=== PATIENT | female | born 1975 | race Caucasian/White ===

== ENCOUNTER → 2017-09-25 | Outpatient (CLI) | payer BC | END | disposition home or self-care (01) | LOC: C.LAB1850 08:22 | PROVIDERS: ATTEND Obstetrics & Gynecology Reproductive Endocrinology | DX: N97.9 Female infertility, unspecified (principal) ==

== ENCOUNTER → 2017-09-27 | Outpatient (CLI) | payer BC | END | disposition home or self-care (01) | LOC: C.LAB1850 08:18 | PROVIDERS: ATTEND Obstetrics & Gynecology Reproductive Endocrinology | DX: N97.9 Female infertility, unspecified (principal) ==

== ENCOUNTER → 2017-10-03 | Outpatient (CLI) | payer BC | END | disposition home or self-care (01) | LOC: C.LAB 09:22 | PROVIDERS: ATTEND Obstetrics & Gynecology Reproductive Endocrinology | DX: N97.9 Female infertility, unspecified (principal) ==

== ENCOUNTER → 2017-11-29 | Outpatient (CLI) | payer OTHER | END | disposition home or self-care (01) | LOC: C.LAB1850 12:08 | PROVIDERS: ATTEND Obstetrics & Gynecology Reproductive Endocrinology | DX: N97.9 Female infertility, unspecified (principal) ==

== ENCOUNTER → 2017-12-12 | Outpatient (CLI) | payer OTHER ==
[2017-12-12 10:00] LABS: LUTEINIZING HORMONE 2.43 IU/L
== END | disposition home or self-care (01) ==
LOC: C.LAB1850 08:20
PROVIDERS: ATTEND Obstetrics & Gynecology Reproductive Endocrinology
DX: N97.9 Female infertility, unspecified (principal)

== ENCOUNTER → 2017-12-31 | Outpatient (CLI) | payer OTHER | END | disposition home or self-care (01) | LOC: C.LAB1850 08:02 | PROVIDERS: ATTEND Obstetrics & Gynecology Reproductive Endocrinology | DX: Z32.00 Encounter for pregnancy test, result unknown (principal) ==

== ENCOUNTER → 2018-01-02 | Outpatient (CLI) | payer OTHER | END | disposition home or self-care (01) | LOC: C.LAB1850 08:20 | PROVIDERS: ATTEND Obstetrics & Gynecology Reproductive Endocrinology | DX: Z32.00 Encounter for pregnancy test, result unknown (principal) ==

== ENCOUNTER → 2018-01-06 | Outpatient (CLI) | payer OTHER | END | disposition home or self-care (01) | LOC: C.LAB1850 08:08 | PROVIDERS: ATTEND Obstetrics & Gynecology Reproductive Endocrinology | DX: Z32.00 Encounter for pregnancy test, result unknown (principal) ==

== ENCOUNTER 2018-02-24 15:11 | Emergency (ER) | payer OTHER ==
[~2018-02-24] VITALS: Ht 157.5 cm; Wt 52.7 kg
[2018-02-24 15:26] VITALS: TEMP 36.7; Ht 157.5 cm; Wt 52.7 kg
[2018-02-24] MEDS ORDERED: SODIUM CHLORIDE 0.9% 1000ML 1,000 ML IV STA (16:28)
--- NOTE | 2018-02-24 16:44 | EMERGENCY ROOM VISIT NOTE ---
ED Visit Note First contact with patient: 16:19 CHIEF COMPLAINT: Vaginal bleeding in early HISTORY OF PRESENTING ILLNESS: This is a 43-year-old female who presents to the emergency department with complaint of vaginal spotting that started today. Patient states that she has been spotting light pink and it is only when she wipes, but she did have one small dark clot past today as well. She denies any abdominal pain or cramping, back pain, heavy vaginal bleeding or large clots. She is with a daughter at home. She states that she used IVF for this , and has already had an ultrasound at 6 weeks confirming IUP, and last had heart tones confirmed at 10 weeks. She spoke with her OB office today who told her to go to the ER for evaluation. She denies any fevers or chills, or recent illness. She denies any chest pain, shortness of breath, dizziness or syncope. She denies any unusual rash. REVIEW OF SYSTEMS: A complete 10 point review of systems was reviewed with the patient with pertinent positives and negatives as per history of present illness. All else were negative. PAST MEDICAL HISTORY: No significant past medical or surgical history. SOCIAL HISTORY: Lives at home. Denies tobacco use. ALLERGIES: No known allergies. PHYSICAL EXAM: CONSTITUTIONAL: Pleasant and cooperative. No acute distress. Well-hydrated, well appearing and well nourished. HEENT: Normocephalic, atraumatic. Pupils equal, round and reactive to light, EOMI. TMs normal. Pharynx normal. Moist mucous membranes. NECK: Supple, full active range of motion without discomfort. RESPIRATORY: Clear to auscultation bilaterally with no wheezing, crackles, rhonchi or stridor. Equal expansion bilaterally. CARDIOVASCULAR: Regular rate and rhythm with no murmurs, rubs or gallops. Normal peripheral perfusion. No edema. GASTROINTESTINAL: Soft, nontender, nondistended. No palpable masses or HSM. Bowel sounds present in all quadrants. Pelvic exam deferred. MUSCULOSKELETAL: Full range of motion of all joints without discomfort. INTEGUMENTARY: No rash or other significant dermatologic conditions noted. NEUROLOGIC: Alert and oriented X 4 with normal affect. Normal strength and sensation all 4 extremities. No focal neurologic deficits noted. Normal speech. Normal gait observed. ED COURSE AND MEDICAL DECISION MAKING: CC: Patient presenting with complaint of vaginal bleeding in DIFFERENTIAL DIAGNOSIS: Includes, but not limited to abnormal vaginal bleeding , threatened miscarriage, demise, MEDICATION RECONCILIATION: I attest that I have personally reviewed the patient 's current medication list. INITIAL VITAL SIGNS REVIEW: I reviewed the patient's initial vital signs and interpret them as follows: T: Afebrile; BP: Normotensive; HR: Within normal limits; RR: Within normal limits; Pulse Ox: Within normal limits on room air. Blood pressure screening: The patient was found to have normal blood pressure on screening and does not require follow-up for repeat blood pressure check. SUMMARY: Patient was evaluated at bedside, history and physical exam performed. Patient is alert and oriented, no acute distress, resting calmly in stretcher. Patient has no abdominal tenderness on exam. Patient declined a pelvic exam. She has not been having any active vaginal bleeding or passage of clots. Orders were placed at bedside for labs, Rh type, IV fluids for hydration, pelvic ultrasound to evaluate for threatened miscarriage. Patient discussed with Dr. Neal, who agrees with my assessment and plan. 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 She agreed to have straight stick for labs to be sent. Patient does not know her blood type, but she does not recall receiving any injections of RhoGam during her first . Nursing staff obtained bedside heart tones with doppler, noting heart rate in the 150s which is within normal limits. I discussed signs and symptoms of concern that should prompt return to the emergency department, and encouraged the patient to follow closely with her OB doctor, she verbalized understanding. Patient was discharged home in stable condition and ambulatory. Addendum: I did follow up on the patient's lab results, noting no leukocytosis or anemia, no electrolyte abnormalities, normal renal function and normal liver enzymes. She is Rh+ blood type and will not require any RhoGam. Current/Historical Medications No Active Prescriptions or Reported Meds Allergies Coded Allergies: No Known Allergies (Unverified , 02/24/18) Vital Signs Date Time Temp Pulse Resp B/P (MAP) Pulse Ox O2 Delivery O2 Flow Rate FiO2 02/24/18 17:25 67 16 110/62 99 02/24/18 15:26 36.7 69 20 114/61 100 Room Air Laboratory Results 02/24/18 17:04 Red Blood Count 3.87, Mean Corpuscular Volume 89.7, Mean Corpuscular Hemoglobin 31.3, Mean Corpuscular Hemoglobin Concent 34.9, Mean Platelet Volume 11.3, Neutrophils (%) (Auto) 53.3, Lymphocytes (%) (Auto) 37.3, Monocytes (%) (Auto) 6.9, Eosinophils (%) (Auto) 2.2, Basophils (%) (Auto) 0.2, Neutrophils # (Auto) 4.30, Lymphocytes # (Auto) 3.02, Monocytes # (Auto) 0.56, Eosinophils # (Auto) 0.18, Basophils # (Auto) 0.02 02/24/18 17:04 Test 02/24/18 17:04 White Blood Count 8.09 K/uL (4.8-10.8) Red Blood Count 3.87 M/uL (4.2-5.4) Hemoglobin 12.1 g/dL (12.0-16.0) Hematocrit 34.7 % (37-47) Mean Corpuscular Volume 89.7 fL (80-100) Mean Corpuscular Hemoglobin 31.3 pg (25-34) Mean Corpuscular Hemoglobin Concent 34.9 g/dl (32-36) Platelet Count 242 K/uL (130-400) Mean Platelet Volume 11.3 fL (7.4-10.4) Neutrophils (%) (Auto) 53.3 % Lymphocytes (%) (Auto) 37.3 % Monocytes (%) (Auto) 6.9 % Eosinophils (%) (Auto) 2.2 % Basophils (%) (Auto) 0.2 % Neutrophils # (Auto) 4.30 K/uL (1.4-6.5) Lymphocytes # (Auto) 3.02 K/uL (1.2-3.4) Monocytes # (Auto) 0.56 K/uL (0.11-0.59) Eosinophils # (Auto) 0.18 K/uL (0-0.5) Basophils # (Auto) 0.02 K/uL (0-0.2) RDW Standard Deviation 45.6 fL (36.4-46.3) RDW Coefficient of Variation 13.8 % (11.5-14.5) Immature Granulocyte % (Auto) 0.1 % Immature Granulocyte # (Auto) 0.01 K/uL (0.00-0.02) Anion Gap 8.0 mmol/L (3-11) Est Creatinine Clear Calc Drug Dose 104.6 ml/min Estimated GFR () 134.2 Estimated GFR (Non- 115.8 BUN/Creatinine Ratio 18.0 (10-20) Calcium Level 9.0 mg/dl (8.5-10.1) Total Bilirubin 0.2 mg/dl (0.2-1) Aspartate Amino Transf (AST/SGOT) 17 U/L (15-37) Alanine Aminotransferase (ALT/SGPT) 23 U/L (12-78) Alkaline Phosphatase 39 U/L (45-117) Total Protein 7.2 gm/dl (6.4-8.2) Albumin 3.5 gm/dl (3.4-5.0) Globulin 3.7 gm/dl (2.5-4.0) Albumin/Globulin Ratio 0.9 (0.9-2) Human Chorionic Gonadotropin, Quant 73362 mIU/mL Departure Information Impression Primary Impression: Threatened miscarriage in early Additional Impression: Vaginal bleeding in Dispostion Home / Self-Care Condition GOOD Prescriptions No Active Prescriptions or Reported Meds Referrals No Doctor, Assigned (PCP) Patient Instructions ED Miscarriage [facility] Additional Instructions You have been evaluated in the emergency department today for your vaginal bleeding during . Any bleeding in early is concerning for a possible miscarriage, but may also be normal. Please follow-up with your OB office -- call to set up an appointment. Please return to the ER for worsening symptoms, including severe pain, persistent heavy bleeding (soaking through 2 or more pads/tampons per hour), fever/chills, severe dizziness or passing out, or any other concerns. Problem Qualifiers
[2018-02-24 17:25] VITALS: BP 110/62; PULSE 67; O2SAT 99
[2018-02-24 17:27] LABS: BASO % 0.2 %; BASO ABS # 0.02 K/uL (0-0.2); EOS % 2.2 %; EOS ABS # 0.18 K/uL (0-0.5); HEMATOCRIT 34.7 % (37-47); HEMOGLOBIN 12.1 g/dL (12.0-16.0); IG# 0.01 K/uL (0.00-0.02); LYMPH % 37.3 %; LYMPH ABS # 3.02 K/uL (1.2-3.4); MEAN CELL VOLUME 89.7 fL (80-100); MEAN CORPUSCULAR HEMOGLOBIN 31.3 pg (25-34); MEAN CORPUSCULAR HGB CONC 34.9 g/dl (32-36); MEAN PLATELET VOLUME 11.3 fL (7.4-10.4); MONO % 6.9 %; MONO ABS # 0.56 K/uL (0.11-0.59); NEUT % 53.3 %; PLATELET COUNT 242 K/uL (130-400); RED CELL DISTRIBUTION WIDTH CV 13.8 % (11.5-14.5); RED CELL DISTRIBUTION WIDTH SD 45.6 fL (36.4-46.3); WHITE BLOOD COUNT 8.09 K/uL (4.8-10.8)
[2018-02-24 17:55] LABS: ALBUMIN 3.5 gm/dl (3.4-5.0); CREATININE 0.56 mg/dl (0.60-1.20); POTASSIUM 3.5 mmol/L (3.5-5.1)
[2018-02-24 17:57] LABS: TOTAL PROTEIN 7.2 gm/dl (6.4-8.2)
== END 2018-02-24 17:25 | disposition home or self-care (01) ==
LOC: C.EDB 15:13 → C.EDC 17:25
DX: O20.0 Threatened abortion (principal)